=== PATIENT | male | born 2000 | race Hispanic/Latino ===

== ENCOUNTER 2018-11-11 05:44 | Emergency (ER) | payer OTHER ==
[2018-11-11 05:55] VITALS: BP 172/98
--- NOTE | 2018-11-11 06:33 | XRay Report ---
CHEST 1 VIEW 11/11/2018 6:11 AM INDICATION / CLINICAL INFORMATION: Chest Pain. COMPARISON: None available. FINDINGS: SUPPORT DEVICES: None. HEART / MEDIASTINUM: No significant abnormality. LUNGS / PLEURA: No significant pulmonary or pleural abnormality. No pneumothorax. ADDITIONAL FINDINGS: No significant additional findings. IMPRESSION: No acute findings. Signer Name: Nahid Martinez MD Signed: 11/11/2018 6:29 AM Workstation Name: [id number]
[2018-11-11 06:38] LABS: Basophils # (Auto) 0.1 K/mm3 (0.0-0.1); Basophils % (Auto) 0.8 % (0.0-1.8); Eosinophils # (Auto) 0.2 K/mm3 (0.0-0.4); Eosinophils % (Auto) 2.8 % (0.0-4.3); Hematocrit 49.4 % (35.5-45.6); Hemoglobin 16.6 gm/dl (11.8-15.2); Lymphocytes # (Auto) 2.8 K/mm3 (1.2-5.4); Lymphocytes % (Auto) 43.3 % (13.4-35.0); Mean Corpuscular HGB Conc 34 % (32-34); Mean Corpuscular Volume 93 fl (84-94); Monocytes # (Auto) 0.7 K/mm3 (0.0-0.8); Monocytes % (Auto) 10.6 % (0.0-7.3); Platelet Count 177 K/mm3 (140-440); Red Blood Count 5.32 M/mm3 (3.65-5.03); Red Cell Distribution Width 13.4 % (13.2-15.2)
[2018-11-11 06:45] LABS: BUN/Creatinine Ratio 12; Blood Urea Nitrogen 12 mg/dL (9-20); Calcium 9.6 mg/dL (8.4-10.2); Hemolysis Index 9
--- NOTE | 2018-11-11 07:55 | Emergency Department Report ---
ED General Adult HPI - General Chief complaint: Dizziness Stated complaint: PEPE SHAKE Time Seen by Provider: 11/11/18 07:30 Source: patient Mode of arrival: Ambulatory Limitations: No Limitations - History of Present Illness Initial comments: This is a 18-year-old healthy looking male with no prior medical history who presents to ED feelings of anxiousness and shaking with heart racing started this morning. Patient states that around 4:30 AM he took an estrogen carmita and fat burner tricuspid medication with caffeine. Patient states on his way to work she started to feel anxious felt his heart racing and just didn't feel like himself. Patient states he panicked due to the symptoms he was having and came in today to be evaluated. Patient denies fever/chills/nausea vomiting/chest pain/shortness of breath - Related Data Allergies Allergy/AdvReac Type Severity Reaction Status Date / Time No Known Allergies Allergy Verified 11/11/18 05:48 ED Review of Systems ROS: Stated complaint: PEPE SHAKE Other details as noted in HPI Comment: All other systems reviewed and negative ED Past Medical Hx - Past Medical History Previous Medical History?: Yes Additional medical history: arrythmia as child - Surgical History Past Surgical History?: Yes Hx Appendectomy: Yes Additional Surgical History: tonsil - Social History Smoking Status: Never Smoker Substance Use Type: None ED Physical Exam - General Limitations: No Limitations General appearance: alert, in no apparent distress - Head Head exam: Present: atraumatic, normocephalic - Eye Eye exam: Present: normal appearance - ENT ENT exam: Present: mucous membranes moist - Neck Neck exam: Present: normal inspection - Respiratory Respiratory exam: Present: normal lung sounds bilaterally. Absent: respiratory distress - Cardiovascular Cardiovascular Exam: Present: regular rate, normal rhythm. Absent: systolic murmur, diastolic murmur, rubs, gallop - GI/Abdominal GI/Abdominal exam: Present: soft, normal bowel sounds - Rectal Rectal exam: Present: deferred - Extremities Exam Extremities exam: Present: normal inspection - Back Exam Back exam: Present: normal inspection - Neurological Exam Neurological exam: Present: alert, oriented X3 - Psychiatric Psychiatric exam: Present: normal affect, normal mood - Skin Skin exam: Present: warm, dry, intact, normal color. Absent: rash ED Course Vital Signs 11/11/18 05:45 Temperature 97.8 F Pulse Rate 81 Respiratory 18 Rate Blood Pressure 172/98 O2 Sat by Pulse 99 Oximetry ED Medical Decision Making - Lab Data Result diagrams: 11/11/18 06:04 11/11/18 06:04 - Radiology Data Radiology results: report reviewed, image reviewed Fluoro Time In Minutes: CHEST 1 VIEW 11/11/2018 6:11 AM INDICATION / CLINICAL INFORMATION: Chest Pain. COMPARISON: None available. FINDINGS: SUPPORT DEVICES: None. HEART / MEDIASTINUM: No significant abnormality. LUNGS / PLEURA: No significant pulmonary or pleural abnormality. No pneumothorax. ADDITIONAL FINDINGS: No significant additional findings. IMPRESSION: No acute findings. Signer Name: Nahid Martinez MD Signed: 11/11/2018 6:29 AM Workstation Name: [id number] Transcribed By: JOB Dictated By: Nahid Martinez MD Electronically Authenticated By: Nahid Martinez MD Signed Date/Time: 11/11/18628 - Medical Decision Making 18-year-old male presents with adverse reaction to medication. Discussed normal lab findings an x-ray with the patient and his parents. Discussed to stop taking and medication and follow-up with primary care physician. Discuss with core sticker to talk to his physician about this medications prior to beginning the medication. Patient is in no acute distress. Vital signs are normal. Critical care attestation.: If time is entered above; I have spent that time in minutes in the direct care of this critically ill patient, excluding procedure time. ED Disposition Clinical Impression: [id number] adverse reaction to medication, Medication reaction, Panic attack Disposition: DC-01 TO HOME OR SELFCARE Is pt being admited?: No Does the pt Need Aspirin: No Condition: Stable Instructions: Anxiety (ED), Panic Disorder (ED) Additional Instructions: Make sure to follow up with the primary care physician as discussed. Make sure you follow up with your primary care physician and asked about any type of weight loss medications before he start taking it. Respiratory increase your hydration and drinks plenty of fluids water daily If you have any worsening symptoms or develop new symptoms please return to ED immediately. Referrals: ALEX AZUL MD [Primary Care Provider] - 3-5 Days [facility] - 3-5 Days Forms: Accompanied Note, Work/School Release Form(ED) Time of Disposition: 07:56
== END 2018-11-11 08:01 | disposition home or self-care (01) ==
LOC: ED 05:44
DX: T50.905A Adverse effect of unspecified drugs, medicaments and biological substances, initial encounter (principal); F41.0 Panic disorder [episodic paroxysmal anxiety]; Y92.89 Other specified places as the place of occurrence of the external cause
CPT/HCPCS: 36415; 71045; 80048; 85025; 93005; 93010; 99283